=== PATIENT | male | born 1970 | race Two or more races ===

== ENCOUNTER 2022-11-25 11:33 | Outpatient (CLI) | payer OTHER | END 2022-11-25 15:24 | disposition home or self-care (01) | LOC: RAD 11:33 | PROVIDERS: ATTEND Orthopaedic Surgery | DX: M25.561 Pain in right knee (principal); M25.562 Pain in left knee ==

== ENCOUNTER 2022-11-26 06:00 | Day surgery (SDC) | payer OTHER ==
[~2022-11-26] VITALS: Ht 172.7 cm; Wt 77.1 kg
== END 2022-11-26 17:20 | disposition home or self-care (01) ==
LOC: CIR.AMB 06:00
PROVIDERS: ATTEND Specialist
DX: K40.90 Unilateral inguinal hernia, without obstruction or gangrene, not specified as recurrent (principal); Z20.822 Contact with and (suspected) exposure to COVID-19